=== PATIENT | female | born 1950 | race Caucasian/White ===

== ENCOUNTER → 2025-03-15 08:48 | Outpatient (REF) | payer BC, SELFPAY ==
[2025-03-15 09:27] LABS: % Basophils 0.4 % (0-2); % Eosinophils 1.2 % (0-6); % Immature Granulocytes 0.2 % (0-0.5); % Lymphocytes 45.6 % (20.5-51.1); % Monocytes 8.2 % (1.7-9.3); % Neutrophils 44.4 % (42.2-75.2); Absolute Eosinophils 0.1 10^3/uL (0-0.7); Absolute Lymphocytes 2.2 10^3/uL (1.2-3.4); Absolute Monocytes 0.4 10^3/uL (0.1-0.6); Absolute Neutrophils 2.2 10^3/uL (1.4-6.5); Hematocrit 29.6 % (37.0-47.0); Hemoglobin 10.1 g/dL (12.0-16.0); Ionized Calcium 1.29 mMOL/L (1.15-1.33); Mean Corp Hgb Conc. 34.1 g/dL (33.0-37.0); Mean Corpuscular Hgb 31.5 pg (27.0-31.0); Mean Corpuscular Volume 92.2 fL (81.0-99.0); Mean Platelet Volume 12.1 fL (7.4-10.4); Nucleated Red Blood Cells % 0 %; Platelet Count 164 10^3/uL (130-400); Red Blood Cell Count 3.21 10^6/uL (4.20-5.40); Red Cell Dist. Width 12.5 % (11.5-14.5); White Blood Cell Count 4.9 10^3/uL (4.8-10.8)
[2025-03-15 10:09] LABS: Free T4 1.11 ng/dl (0.78-2.19); Vitamin D, 25-OH*** 61.5 ng/mL (30-80)
[2025-03-15 10:20] LABS: ALT (SGPT) 19 U/L (0-35); AST (SGOT) 23 U/L (14-36); Albumin 4.6 g/dl (3.5-5.0); Alkaline Phosphatase 53 U/L (38-126); Blood Urea Nitrogen 22 mg/dl (7-17); Calcium 10.1 mg/dl (8.4-10.2); Carbon Dioxide 31 mmol/L (22-30); Chloride 97 mmol/L (98-107); Glucose 77 mg/dl (70-99); HDL Cholesterol 88 mg/dl; LDL Cholesterol, Calculated 57 mg/dl; Magnesium 1.7 mg/dl (1.6-2.3); Sodium 134 mmol/L (135-145); Total Bilirubin 0.3 mg/dl (0.2-1.3); Total Cholesterol 165 mg/dl (50-199); Triglyceride 104 mg/dl (10-149); Very Low Density Lipoprotein 20 mg/dl (0-30); eGFR > 60.00
[2025-03-15 10:23] LABS: TSH 6.11 uIU/ml (0.47-4.68)
[2025-03-15 10:55] LABS: Total Protein 6.7 g/dl (6.3-8.2)
[2025-03-15 12:14] LABS: Vitamin B12 758 pg/ml (239-931)
[2025-03-17 16:14] LABS: Mumps Virus IgG Positive; Rubeola (Measles) IgG Positive
[2025-03-17 19:24] LABS: Rubella Positive
== END ==
LOC: REG 08:48
PROVIDERS: ATTENDING PHYSICIAN Family Medicine
DX: E11.59 Type 2 diabetes mellitus with other circulatory complications (principal); F41.1 Generalized anxiety disorder; M51.369 Other intervertebral disc degeneration, lumbar region without mention of lumbar back pain or lower extremity pain; M51.34 Other intervertebral disc degeneration, thoracic region; M54.2 Cervicalgia; G89.29 Other chronic pain; G89.4 Chronic pain syndrome; J30.1 Allergic rhinitis due to pollen; F33.1 Major depressive disorder, recurrent, moderate; N39.41 Urge incontinence; E03.9 Hypothyroidism, unspecified; M79.10 Myalgia, unspecified site; G62.9 Polyneuropathy, unspecified
CPT/HCPCS: 36415; 80053; 80061; 82306; 82330; 82607; 83036; 83735; 84439; 84443; 85025; 86735; 86762; 86765